=== PATIENT | female | born 1965 | race Caucasian/White ===

== ENCOUNTER 2020-06-06 11:30 | Emergency (ER) | payer OTHER ==
[~2020-06-06] VITALS: Ht 162.6 cm; Wt 77.1 kg
--- NOTE | 2020-06-06 11:30 | NUR ---
PATIENT BIBA ALS TO ER BED 05
[2020-06-06 11:34] VITALS: BP 176/104
[2020-06-06] MEDS ORDERED: KETOROLAC 60 MG/2 ML VIAL IM ONE (11:45)
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
[2020-06-06] MEDS ORDERED: IBUPROFEN 800 MG TAB PO ONE (12:05)
--- NOTE | 2020-06-06 12:06 | NUR ---
pt refused toradol, would rather have po meds,neeraj faustin notified
[2020-06-06 12:08] VITALS: BP 153/86
--- NOTE | 2020-06-06 12:10 | NUR ---
motrin po administered
--- NOTE | 2020-06-06 12:20 | NUR ---
PAIN REASSESED. NO ADVERSE REACTIONS NOTED.
--- NOTE | 2020-06-06 12:20 | NUR ---
Patient discharged with v/s stable. Written and verbal after care instructions given and explained. Patient alert, oriented and verbalized understanding of instructions. Ambulatory with steady gait. All questions addressed prior to discharge. ID band removed. Patient advised to follow up with PMD. Rx of MOTRIN AND NORCO given. Patient educated on indication of medication including possible reaction and side effects. Opportunity to ask questions provided and answered. INSTRUCTED PT TO AVOID DRIVING AFTER TAKING NORCO AND TO RETURN TO ER IF PAIN, SWELLING OR FEVER OCCURS.
== END 2020-06-06 12:20 | disposition home or self-care (01) ==
LOC: MED 11:30
DX: M54.2 Cervicalgia (principal); Z98.890 Other specified postprocedural states; V89.2XXA Person injured in unspecified motor-vehicle accident, traffic, initial encounter; Y93.89 Activity, other specified; Y92.89 Other specified places as the place of occurrence of the external cause; Y99.8 Other external cause status
CPT/HCPCS: 99283; J1885